=== PATIENT | male | born 1945 | race Caucasian/White ===

== ENCOUNTER 2016-07-21 20:22 | Emergency (ER) | payer MEDICARE, MEDICAID ==
[2016-07-22] MEDS ORDERED: DOXYcycline CAP(*) 100 MG PO ONE (00:07)
[2016-07-22 00:22] VITALS: BP 120/72
--- NOTE | 2016-07-22 00:22 | ED ---
Bunny Brown Benjamin, scribed for Bubba Bravo MD on 07/22/16 at 0012 . Skin Complaint - HPI Summary HPI Summary: 71yo male came to ED for a tick bite on left upper chest with a tick. Pt wants to get the bite evaluated. - History of Current Complaint Chief Complaint: EDAnimalBite Time Seen by Provider: 07/21/16 23:49 Stated Complaint: TICK Hx Obtained From: Patient Onset/Duration: Started Hours Ago, Still Present Skin Exposure Onset/Duration: Hours Ago Timing: Constant Current Severity: None Pain Intensity: 0 Pain Scale Used: 0-10 Numeric Skin Location: Chest - left upper chest Character: Redness - Allergy/Home Medications Allergies/Adverse Reactions: Allergies Allergy/AdvReac Type Severity Reaction Status Date / Time No Known Allergies Allergy Verified 07/21/16 20:35 PMH/Surg Hx/FS Hx/Imm Hx Previously Healthy: Yes Infectious Disease History: No Infectious Disease History: Denies: Traveled Outside the [place] in Last 30 Days - Family History Known Family History: Negative: Cardiac Disease, Hypertension Review of Systems Constitutional: Negative Eyes: Negative ENT: Negative Cardiovascular: Negative Respiratory: Negative Gastrointestinal: Negative Genitourinary: Negative Musculoskeletal: Negative Positive: Other - left chest tick bite Neurological: Negative Psychological: Normal All Other Systems Reviewed And Are Negative: Yes Physical Exam Triage Information Reviewed: Yes Vital Signs On Initial Exam: Initial Vitals Temp Pulse Resp BP Pulse Ox 98.6 F 52 18 130/68 98 07/21/16 20:35 07/21/16 20:35 07/21/16 20:35 07/21/16 20:35 07/21/16 20:35 Vital Signs Reviewed: Yes Appearance: Positive: Well-Appearing, No Pain Distress Skin: Positive: Warm, Other - tick lt lat chest wall Head/Face: Positive: Normal Head/Face Inspection ENT: Positive: Hearing grossly normal Neck: Positive: Supple Respiratory/Lung Sounds: Positive: Clear to Auscultation, Breath Sounds Present Cardiovascular: Positive: Normal Neurological: Positive: Alert, Oriented to Person Place, Time Procedures - Procedure Summary Procedure Summary: tic removed from lt lat chest wall intact Diagnostics - Vital Signs Vital Signs Temp Pulse Resp BP Pulse Ox 07/21/16 21:40 98.8 F 54 16 112/48 99 07/21/16 20:35 98.6 F 52 18 130/68 98 - Laboratory Lab Statement: Any lab studies that have been ordered have been reviewed, and results considered in the medical decision making process. Course/Dx - Diagnoses Provider Diagnoses: Tick bite Discharge - Discharge Plan Condition: Stable Disposition: HOME Patient Education Materials: Tick Bite (ED) Referrals: No Primary Care Phys,NOPCP [Primary Care Provider] - The documentation as recorded by the Bunny hong Benjamin accurately reflects the service I personally performed and the decisions made by me, Bubba Bravo MD.
== END 2016-07-22 00:21 | disposition home or self-care (01) ==
LOC: ED 20:22
DX: S20.362A Insect bite (nonvenomous) of left front wall of thorax, initial encounter (principal); W57.XXXA Bitten or stung by nonvenomous insect and other nonvenomous arthropods, initial encounter; Y93.9 Activity, unspecified; Y92.9 Unspecified place or not applicable; Y99.9 Unspecified external cause status
CPT/HCPCS: 99282; A9270-GY

== ENCOUNTER 2016-09-01 22:39 | Emergency (ER) | payer MEDICARE ==
[2016-09-02] MEDS ORDERED: Dexamethasone IV* 4 MG/ML 1 ML (4 MG) IM ONE (01:24)
[2016-09-02] MEDS ORDERED: Ketorolac INJ* 60 MG/2 ML VIAL IM ONE (01:24)
--- NOTE | 2016-09-02 02:19 | ED ---
Back Pain - HPI Summary HPI Summary: 71 male presents with complains of lower back pain that began 1 month ago and has seemed to hurt worse over the past couple of days. 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 He states he injured it back in July and then with the long flight and work he does he feels as though he has just been making it worse. He states he did some gardening today and wasn't able to move well afterwards. It is difficult for him to walk however he is able. The pain was disrupting him from sleeping and he was worried so he decided to come have it checked out. Denies numbness/tingling, saddle anesthesia, bladder/bowel incontinence, bruising, redness, swelling and radiation of pain. States pain worsens with movement, walking and taking deep breaths. He has also noticed his abdominal muscles to be sore from compensating. Denies any other PMHx. Had sciatica in the past. No recent trauma or injury, just over use. States pain is on the lower right and left sides of his spine. He has not taken any medication for the pain. - History of Current Complaint Chief Complaint: EDBackInjuryPain Stated Complaint: LOWER BACK PAIN Time Seen by Provider: 09/02/16 00:52 Hx Obtained From: Patient Onset/Duration: Gradual Onset, Lasting Weeks, Still Present, Worse Since Onset/Duration: Started Weeks Ago, Traumatic, Worse Since Timing: Constant Back Pain Location: Is Discrete @ - L3-S1 Severity Initially: Moderate Severity Currently: Moderate Pain Intensity: 9 Pain Scale Used: 0-10 Numeric Character: Sharp, Aching, Spasmodic, Stiffness Aggravating Symptom(s): Movement, Lifting, Bending, Walking, Cough Alleviating Symptom(s): Rest, Position Associated Signs And Symptoms: Positive: Negative - Allergies/Home Medications Allergies/Adverse Reactions: Allergies Allergy/AdvReac Type Severity Reaction Status Date / Time No Known Allergies Allergy Verified 09/01/16 22:45 PMH/Surg Hx/FS Hx/Imm Hx Endocrine/Hematology History: Denies: Hx Anemia Cardiovascular History: Denies: Hx Hypertension, Hx Myocardial Infarction Respiratory History: Denies: Hx Asthma - Surgical History Surgery Procedure, Year, and Place: none - Immunization History Immunizations Up to Date: Yes Infectious Disease History: No Infectious Disease History: Denies: Traveled Outside the [place] in Last 30 Days - Family History Known Family History: Negative: Cardiac Disease, Hypertension - Social History Alcohol Use: None Substance Use Type: Reports: None Smoking Status (MU): Never Smoked Tobacco Review of Systems Constitutional: Negative Cardiovascular: Negative Respiratory: Negative Gastrointestinal: Negative Genitourinary: Negative Positive: Arthralgia, Myalgia, Decreased ROM - lower back Skin: Negative Neurological: Negative Psychological: Normal All Other Systems Reviewed And Are Negative: Yes Physical Exam Triage Information Reviewed: Yes Vital Signs On Initial Exam: Initial Vitals Temp Pulse Resp BP Pulse Ox 98.3 F 85 14 108/70 100 09/01/16 22:40 09/01/16 22:40 09/01/16 22:40 09/01/16 22:40 09/01/16 22:40 Vital Signs Reviewed: Yes Appearance: Positive: Well-Appearing - sitting in recliner chair, moves slowly during exam, No Pain Distress - mild pain distress upon any movement, Well- Nourished, Thin Skin: Positive: Warm, Dry, Other - without deformity, crepitus and step off. no ecchymosis, edema or erythema noted.. Negative: Cyanosis @, Erythema @ Head/Face: Positive: Normal Head/Face Inspection Eyes: Positive: Normal, Conjunctiva Clear ENT: Positive: Normal ENT inspection, Hearing grossly normal Neck: Positive: Supple, Nontender Respiratory/Lung Sounds: Positive: Clear to Auscultation, Breath Sounds Present Cardiovascular: Positive: Normal, RRR, Pulses are Symmetrical in both Upper and Lower Extremities - 2+ radial and pedal b/l. Negative: Leg Edema Left Abdomen Description: Positive: Nontender, No Organomegaly, Soft Bowel Sounds: Positive: Present Musculoskeletal: Positive: Limited @ - ROM with flexion and extension at back, strength b/l LE 4/5, Other - no pain on palpation of spine or paraspinal muscles. points to pain at L3-S1 area lateral to spine. no ecchymosis or obvious deformity. lumbar spine appears more prominent than the rest. patient is very thin, atrophy.. Negative: Interruption @, Pain @ Neurological: Positive: Normal, Sensory/Motor Intact, Alert, Oriented to Person Place, Time, CN Intact II-III, Reflexes Intact, NV Bundle Intact Distally, Normal Gait - limping and walks slowly Psychiatric: Positive: Normal, Affect/Mood Appropriate Diagnostics - Vital Signs Vital Signs Temp Pulse Resp BP Pulse Ox 09/01/16 22:43 98.3 F 85 14 133/70 100 09/01/16 22:40 98.3 F 85 14 133/70 100 - Laboratory Lab Statement: Any lab studies that have been ordered have been reviewed, and results considered in the medical decision making process. Re-Evaluation - Re-Evaluation First Eval Re-Evaluation Time: 02:20 Change: Improved - patient had relief after toradol and dexamethasone injections , ready to be d/c Back Pain Course/Dx - Course Course Of Treatment: toradol and dexamethasone IM adminsistered. patient had relief. given muscle relaxer to take at home before bedtime due to having to drive. no concern for fracture, cauda equina or epidural abcess at this time. x- ray did not seem appropriate due to REYES, HPI and PE findings. prescribed prednisone x3 days, ibuprofen and flexeril. Heat and rest. follow up. aware of worsening signs and symptoms to return. - Diagnoses Differential Diagnosis/HQI/PQRI: Positive: Arthritis, Herniated Disc, Strain, Sprain Provider Diagnoses: Lumbosacral strain, Lower back pain Discharge - Discharge Plan Condition: Stable Disposition: HOME Prescriptions: Cyclobenzaprine TAB* [Flexeril 10 MG TAB*] 10 mg PO BEDTIME PRN #20 tab PRN Reason: Spasms Ibuprofen TAB* [Motrin TAB* 600 MG] 600 mg PO Q6H PRN #40 tab PRN Reason: Pain predniSONE TAB* [Deltasone TAB*] 20 mg PO DAILY #3 tab Patient Education Materials: Low Back Strain (ED) Referrals: No Primary Care Phys,NOPCP [Primary Care Provider] - [facility] [place] [facility] [Outside] Additional Instructions: Take prescribed medications as directed, steroid x 3 days, ibuprofen every 6-8 hours as needed with food for pain and inflammation and muscle relaxer (flexeril ) at bedtime. Do not drive while taking muscle relaxer as this makes you drowsy. Rest and apply a heating pad multiple times daily to the area of pain. Refrain from strenuous exercise and activity. If your pain worsens or new symptoms develop such as numbness/tingling, bladder/ bowel incontinence or weakness please return to ED. Follow up with primary care provider to ensure proper healing.
[2016-09-02] MEDS ORDERED: Cyclobenzaprine TAB* 10 MG PO ONE (02:21)
[2016-09-02 02:50] VITALS: BP 119/61
== END 2016-09-02 02:48 | disposition home or self-care (01) ==
LOC: ED 22:39
DX: S39.012A Strain of muscle, fascia and tendon of lower back, initial encounter (principal); M54.5 Low back pain; X58.XXXA Exposure to other specified factors, initial encounter; Y93.9 Activity, unspecified; Y92.9 Unspecified place or not applicable
CPT/HCPCS: 96372; 96374; 99283; A9270-GY; J1100; J1885

== ENCOUNTER 2017-10-17 12:49 | Emergency (ER) | payer MEDICARE, MEDICAID ==
[2017-10-17 13:30] VITALS: BP 124/78
--- NOTE | 2017-10-17 15:37 | ED ---
Skin Complaint - HPI Summary HPI Summary: Patient is a 72-year-old male who presents to the ED with a tick bite still attached to the left lower extremity. He thinks the tick may have attached last evening when he was outside. He did not notice until this morning. The tick is not engorged. There is no erythema around the area. He denies any pain or symptoms. Denies any myalgias or headache. He states he did not want to attempt to dislodge the tick. - History of Current Complaint Chief Complaint: EDRashSkinAbscess Time Seen by Provider: 10/17/17 13:32 Stated Complaint: TICK BITE Hx Obtained From: Patient Onset/Duration: Started Hours Ago Skin Exposure Onset/Duration: Hours Ago Timing: Constant Onset Severity: Moderate Current Severity: Moderate Pain Intensity: 0 Pain Scale Used: 0-10 Numeric Skin Location: Leg Aggravating Symptom(s): Nothing Associated Signs & Symptoms: Negative Related History: Insect Bite/Sting - Allergy/Home Medications Allergies/Adverse Reactions: Allergies Allergy/AdvReac Type Severity Reaction Status Date / Time No Known Allergies Allergy Verified 10/17/17 13:26 PMH/Surg Hx/FS Hx/Imm Hx Previously Healthy: Yes Endocrine/Hematology History: Denies: Hx Anemia Cardiovascular History: Denies: Hx Hypertension, Hx Myocardial Infarction Respiratory History: Denies: Hx Asthma - Surgical History Surgery Procedure, Year, and Place: none - Immunization History Hx Pertussis Vaccination: No Immunizations Up to Date: Yes Infectious Disease History: No Infectious Disease History: Denies: Traveled Outside the [place] in Last 30 Days - Family History Known Family History: Negative: Cardiac Disease, Hypertension - Social History Occupation: Employed Full-time Lives: Alone Alcohol Use: None Hx Substance Use: No Substance Use Type: Reports: None Hx Tobacco Use: No Smoking Status (MU): Never Smoked Tobacco Review of Systems Constitutional: Negative Negative: Fever, Chills, Fatigue Negative: Palpitations, Chest Pain Negative: Shortness Of Breath, Cough Genitourinary: Negative Positive: no symptoms reported, see HPI Negative: Arthralgia, Myalgia Positive: Other - tick attached. Negative: Rash, Bruising Negative: Headache All Other Systems Reviewed And Are Negative: Yes Physical Exam Triage Information Reviewed: Yes Vital Signs On Initial Exam: Initial Vitals Temp Pulse Resp BP Pulse Ox 97.2 F 64 16 124/78 99 10/17/17 13:27 10/17/17 13:27 10/17/17 13:27 10/17/17 13:27 10/17/17 13:27 Vital Signs Reviewed: Yes Appearance: Positive: Well-Appearing, Well-Nourished Skin: Positive: Warm, Skin Color Reflects Adequate Perfusion Eyes: Positive: Normal, DARIO Neck: Positive: Supple Respiratory/Lung Sounds: Positive: Clear to Auscultation, Breath Sounds Present Cardiovascular: Positive: Normal, RRR, Pulses are Symmetrical in both Upper and Lower Extremities Musculoskeletal: Positive: Normal, Strength/ROM Intact Neurological: Positive: Sensory/Motor Intact, Alert, Oriented to Person Place, Time Psychiatric: Positive: Normal, Affect/Mood Appropriate AVPU Assessment: Alert Diagnostics - Vital Signs Vital Signs Temp Pulse Resp BP Pulse Ox 10/17/17 14:07 97.2 F 68 16 124/78 99 10/17/17 13:27 97.2 F 64 16 124/78 99 - Laboratory Lab Statement: Any lab studies that have been ordered have been reviewed, and results considered in the medical decision making process. Course/Dx - Course Course Of Treatment: The patient is evaluated for tick bite. Done to show up in circular motions to the area. Tick dislodged. I have discussed treatment options with the patient. I do not recommend prophylaxis or course of antibiotics due to the following:According to the Infectious Diseases Society of [place] (IDSA) guidelines that recommend antibiotic prophylaxis only in patients who meet all of the following criteria: 1.Attached tick identified as an adult or nymphal I. scapularis tick (deer tick). 2.Tick is estimated to have been attached for 36 hours (by degree of engorgement or time of exposure). 3.Prophylaxis is begun within 72 hours of tick removal. Patient is okay with this plan and will return if he develops a bull's-eye rash as explained to him and any other symptoms. - Diagnoses Provider Diagnoses: Tick bite Discharge - Sign-Out/Discharge Documenting (check all that apply): Discharge/Admit/Transfer - Discharge Plan Condition: Stable Disposition: HOME Referrals: No Primary Care Phys,NOPCP [Primary Care Provider] - Additional Instructions: Tick Bite: Approach to prophylaxis : According to the Infectious Diseases Society of [place] (IDSA) guidelines that recommend antibiotic prophylaxis only in patients who meet all of the following criteria: 1. Attached tick identified as an adult or nymphal I. scapularis tick (deer tick). 2. Tick is estimated to have been attached for 36 hours (by degree of engorgement or time of exposure). 3. Prophylaxis is begun within 72 hours of tick removal. Local rate of infection of ticks with B. burgdorferi is 20 percent if attached for over 48 hours (these rates of infection have been shown to occur in parts of [place], parts of the [facility], and parts of [place] and [place]). If you experience a tick and time of attachment is believed to be less than 36 hours, you may remove the tick with head intact and no need for prophylaxis. If over 36 hours, please come into UC. Prophylactic doxycycline is not recommended for ticks attached less than 36 hours. Based on ISDA guidelines, will treat for 2 weeks. Instructions given on dispense of medication and patient is to follow up with PCP for any worsening symptoms and to obtain labwork if she chooses. No lab work obtained today d/t early findings. - Billing Disposition and Condition Condition: STABLE Disposition: HOME
== END 2017-10-17 14:07 | disposition home or self-care (01) ==
LOC: ED 12:49
DX: S80.862A Insect bite (nonvenomous), left lower leg, initial encounter (principal); W57.XXXA Bitten or stung by nonvenomous insect and other nonvenomous arthropods, initial encounter; Y93.9 Activity, unspecified; Y92.9 Unspecified place or not applicable
CPT/HCPCS: 99281

== ENCOUNTER 2019-08-02 13:26 | Emergency (ER) | payer MEDICAID, MEDICARE, OTHER ==
[2019-08-02 13:30] VITALS: BP 106/63
[2019-08-02] MEDS ORDERED: DOXYcycline CAP(*) 100 MG PO ONE (15:17)
--- NOTE | 2019-08-02 17:31 | ED ---
Skin Complaint - HPI Summary HPI Summary: Pt. is a 74 y.o male who presents to the ER for tick to back of right leg. Pt. states his friend pulled out what he believes was a tick from the back of his right leg today. 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 Denies fever, chills, rash, joint pain, h /a. Sxs are mild in severity. No current modifying factors. - History of Current Complaint Chief Complaint: EDRashSkinAbscess Time Seen by Provider: 08/02/19 14:51 Stated Complaint: TICK BITE PER PT Hx Obtained From: Patient Pain Intensity: 0 Pain Scale Used: 0-10 Numeric - Allergy/Home Medications Allergies/Adverse Reactions: Allergies Allergy/AdvReac Type Severity Reaction Status Date / Time No Known Allergies Allergy Verified 08/30/18 23:00 Home Medications: Home Medications Cyclobenzaprine TAB* [Flexeril 10 MG TAB*] 10 mg PO BEDTIME PRN #20 tab [Rx Confirmed 10/17/17] Ibuprofen TAB* [Motrin TAB* 600 MG] 600 mg PO Q6H PRN #40 tab 09/02/16 [Rx Confirmed 10/17/17] predniSONE 20 mg TAB [Deltasone 20 MG TAB*] 20 mg PO DAILY #3 tab 09/02/16 [Rx Confirmed 10/17/17] PMH/Surg Hx/FS Hx/Imm Hx Previously Healthy: Yes Endocrine/Hematology History: Denies: Hx Anemia Cardiovascular History: Denies: Hx Hypertension, Hx Myocardial Infarction Respiratory History: Denies: Hx Asthma History: Denies: Hx Dialysis Sensory History: Denies: Hx Eye Prosthesis, Hx Legally Blind, Hx Deafness Opthamlomology History: Denies: Hx Eye Prosthesis, Hx Legally Blind Neurological History: Denies: Hx Dementia - Surgical History Surgery Procedure, Year, and Place: none - Immunization History Immunizations Up to Date: Unable to Obtain/Confirm Infectious Disease History: No Infectious Disease History: Denies: Traveled Outside the [place] in Last 30 Days - Family History Known Family History: Positive: Non-Contributory Negative: Cardiac Disease, Hypertension - Social History Occupation: Employed Full-time Lives: With Family Alcohol Use: None Hx Substance Use: No Substance Use Type: Reports: None Hx Tobacco Use: No Smoking Status (MU): Never Smoked Tobacco Review of Systems Positive: Other - Tick bite to right leg. Neurological/Mental Status: Negative All Other Systems Reviewed And Are Negative: Yes Physical Exam Triage Information Reviewed: Yes Vital Signs On Initial Exam: Initial Vitals Temp Pulse Resp BP Pulse Ox 98.4 F 72 16 106/63 97 08/02/19 13:28 08/02/19 13:28 08/02/19 13:28 08/02/19 13:28 08/02/19 13:28 Vital Signs Reviewed: Yes Appearance: Positive: Well-Appearing Skin: Positive: Warm, Dry, Other - Small, <0.5cm, noted to posterior right calf. No wound in center. No surrounding erythema. No induration or fluctuance. Head/Face: Positive: Normal Head/Face Inspection Eyes: Positive: Normal, EOMI Neck: Positive: Supple Neurological: Positive: Normal, CN Intact II-III Psychiatric: Positive: Affect/Mood Appropriate Procedures - Sedation Patient Received Moderate/Deep Sedation with Procedure: No Diagnostics - Vital Signs Vital Signs Temp Pulse Resp BP Pulse Ox 08/02/19 15:42 98.4 F 72 16 106/63 97 08/02/19 13:28 98.4 F 72 16 106/63 97 - Laboratory Lab Statement: Any lab studies that have been ordered have been reviewed, and results considered in the medical decision making process. Course/Dx - Course Course Of Treatment: Pt. with tick bite to leg. Tick was removed prior to arrival. Pt. believe tick has only been present since yesterday. Discussed prophylactic dosing vs longer course of doxycycline and pt. would prefer 200mg dose x 1. He will f.u with his pcp for rash, fever, joint pain, or if concerned. pt. understands and agrees with plan. - Differential Diagnoses - Skin Complaint Differential Diagnoses: Abscess, Cellulitis, Tick Born Illness - Diagnoses Provider Diagnoses: Tick bite Discharge ED - Sign-Out/Discharge Documenting (check all that apply): Patient Departure - Discharge Plan Condition: Good Disposition: HOME Patient Education Materials: Tick Bite (ED) Referrals: [facility] [Outside] [facility] [place] [facility] [Outside] Additional Instructions: Follow up with PCP or return to ER for rash, fever, joint pain, headache or if concerned - Billing Disposition and Condition Condition: GOOD Disposition: Home - Attestation Statements Provider Attestation: I was available for consult. This patient was seen by the LION. The patient was not presented to, seen by, or examined by me. Kranthi Aleman MD
== END 2019-08-02 15:45 | disposition home or self-care (01) ==
LOC: ED 13:26
DX: S80.861A Insect bite (nonvenomous), right lower leg, initial encounter (principal); W57.XXXA Bitten or stung by nonvenomous insect and other nonvenomous arthropods, initial encounter; Y92.9 Unspecified place or not applicable; Z79.52 Long term (current) use of systemic steroids
CPT/HCPCS: 99282; A9270-GY